=== PATIENT | female | born 2000 | race Caucasian/White ===

== ENCOUNTER 2023-08-24 19:40 | Emergency (ER) | payer OTHER, MEDICAID ==
[~2023-08-24] VITALS: Ht 160 cm; Wt 71.5 kg
[2023-08-24 19:46] VITALS: O2SAT 100
[2023-08-24] MEDS ORDERED: GUAI600T26 MT (20:51)
[2023-08-24 23:05] VITALS: BP 128/70; PULSE 92; RESP 18; TEMP 97.8
== END 2023-08-24 23:07 | disposition home or self-care (01) ==
LOC: ER 19:40
DX: B34.9 Viral infection, unspecified (principal); Z20.822 Contact with and (suspected) exposure to COVID-19
CPT/HCPCS: 81025; 71045; 99284; 87426; C9803; Z7610; A4565

== ENCOUNTER 2023-09-21 10:42 | Emergency (ER) | payer OTHER, MEDICAID ==
[~2023-09-21] VITALS: Ht 157.5 cm; Wt 74.4 kg
[~2023-09-21 10:42] MED LIST: GUAI600T26 MT
[2023-09-21 11:04] VITALS: BP 115/71; PULSE 104; RESP 16; TEMP 98.5; O2SAT 100
[2023-09-21] MEDS ORDERED: RALT400T MT ×2 (11:22→23:41)
[2023-09-21] MEDS ORDERED: EMTR1TAB11 MT ×2 (11:22→23:41)
[2023-09-21] MEDS ORDERED: TETANUS AND DIPHTHERIA TOX/PF 0.5ML SYR (ADULT) IM ONE (11:30)
[2023-09-21] MEDS ORDERED: CLIN-194 MT (23:39)
== END 2023-09-21 11:51 | disposition home or self-care (01) ==
LOC: ER 11:28
DX: R68.89 Other general symptoms and signs (principal)
CPT/HCPCS: 90714; 99281

== ENCOUNTER 2023-09-21 22:49 | Emergency (ER) | payer OTHER, MEDICAID ==
[~2023-09-21] VITALS: Ht 160 cm; Wt 67.7 kg
[~2023-09-21 22:49] MED LIST changes: +EMTR1TAB11 MT; +RALT400T MT
[2023-09-21 22:58] VITALS: BP 147/87; O2SAT 100
[2023-09-21] MEDS ORDERED: CLIN-194 MT (23:39)
[2023-09-21] MEDS ORDERED: EMTR1TAB11 MT (23:41)
[2023-09-21] MEDS ORDERED: RALT400T MT (23:41)
[2023-09-21] MEDS ORDERED: TETANUS, DIPHTHERIA, PERTUSSIS VAC/PF 0.5ML (>10YR OLD) IM ONE (23:45)
[2023-09-21 23:55] LABS: BASOPHILS % 0.2 % (0.0-2.0); EOSINOPHILS % 0.5 % (0.0-5.0); HEMATOCRIT. 42.3 % (36.0-48.0); HEMOGLOBIN. 14.3 g/dL (12.0-16.0); LYMPHOCYTES % 22.8 % (20.0-50.0); MEAN CORPUSCULAR HEMOGLOBIN 29.2 pg (28.0-32.0); MEAN CORPUSCULAR HGB CONC 33.8 g/dL (31.0-37.0); MEAN CORPUSCULAR VOLUME 86.4 fL (81.0-99.0); MEAN PLATELET VOLUME 6.2 fl (7.4-10.4); MONOCYTES % 4.9 % (2.0-8.0); NEUTROPHILS % 71.6 % (40.0-76.0); PLATELET 473 x1000/uL (130-400); RED CELL DISTRIBUTION WIDTH 13.7 % (11.6-14.6); WHITE BLOOD COUNT 9.6 x1000/uL (4.5-11.0)
[2023-09-22 00:28] LABS: CHLORIDE 105 mEq/L (98-107); INDEX HEMOLYSI 1 (1-3); INDEX ICTERIC 1 (1-4); INDEX LIPEMIC 1 (1-3); POTASSIUM 3.9 mEq/L (3.5-5.1); SODIUM 137 mEq/L (136-145)
[2023-09-22 00:37] LABS: ALANINE AMINOTRANSFERASE 141 IU/L (13-61); ASPARTATE AMINOTRANSFERASE 69 IU/L (15-37); BILIRUBIN TOTAL 0.4 mg/dL (0.1-1.0); CALCIUM 8.9 mg/dL (8.5-10.1); CARBON DIOXIDE 24 mEq/L (21-32); CREATININE 0.6 mg/dL (0.6-1.3); GLUCOSE 110 mg/dL (70-105); PROTEIN TOTAL 8.2 g/dL (6.0-8.3); UREA NITROGEN BLOOD 7 mg/dL (7-21)
[2023-09-22] MEDS ORDERED: TETANUS, DIPHTHERIA, PERTUSSIS VAC/PF 0.5ML (>10YR OLD) IM ONE (01:30)
[2023-09-22 01:31] LABS: HEPATITIS B SURFACE ANTIGEN NEGATIVE
[2023-09-22 01:39] VITALS: PULSE 100; RESP 18; TEMP 98.7
[2023-09-22 01:59] LABS: HEPATITIS B CORE AB IGM NEGATIVE
[2023-09-22 02:01] LABS: HEPATITIS A AB IGM NEGATIVE (NEGATIVE)
[2023-09-22 04:38] LABS: HEPATITIS C VIR.AB > 11.00 INDEXVAL (0.00-0.80)
== END 2023-09-22 01:51 | disposition home or self-care (01) ==
LOC: ER 22:49
DX: L03.011 Cellulitis of right finger (principal)
CPT/HCPCS: 80053; 85025; 87340; 86803; 36415; 86705; 86709; 99283; 90715; 90471; Z7610